=== PATIENT | female | born 1950 | race Native Hawaiian/Other Pacific Islander ===

== ENCOUNTER 2019-01-29 17:10 | Emergency (ER) | payer OTHER ==
[~2019-01-29] VITALS: Ht 160 cm; Wt 57.2 kg
[2019-01-29 19:39] VITALS: BP 119/81; TEMP 97.7
== END 2019-01-29 19:26 | disposition home or self-care (01) ==
LOC: ED 17:10
DX: S93.602A Unspecified sprain of left foot, initial encounter (principal); X50.1XXA Overexertion from prolonged static or awkward postures, initial encounter; Y92.89 Other specified places as the place of occurrence of the external cause; M79.672 Pain in left foot
CPT/HCPCS: 99282

== ENCOUNTER 2019-05-29 14:48 | Outpatient (CLI) | payer OTHER ==
[2019-05-29 15:41] LABS: POTASSIUM 4.2 mmol/L (3.6-5.2)
== END 2019-05-29 22:32 | disposition home or self-care (01) ==
LOC: LABW 14:48
PROVIDERS: Specialist
DX: G23.8 Other specified degenerative diseases of basal ganglia (principal)
CPT/HCPCS: 80053; 82306; 83970; 85651; 86038